=== PATIENT | male | born 1945 | race Caucasian/White ===

== ENCOUNTER 2016-12-02 14:29 | Emergency (ER) | payer BC, MEDICARE ==
[2016-12-02 15:25] VITALS: BP 121/64
--- NOTE | 2016-12-02 16:24 | UC ---
Skin Complaint HPI - HPI Summary HPI Summary: Patient presents with left great toe erythema with 2 blisters over the toe. He denies known bug bites, but states he is outside often with spiders around. He noticed last evening hit toe was swollen which quickly radiated into the foot with swelling. He was able to take 2 doses of benadryl throughout the night and now the swelling has resolved. He remains with slight erythema over the great toe now with enlarging blisters. One blister appears to be yellow, the other red. Denies fevers, sweats or chills. Denies malaise or hx of MRSA. - History of Current Complaint Chief Complaint: UCRas Time Seen by Provider: 12/02/16 15:47 Stated Complaint: RASH Hx Obtained From: Patient Onset/Duration: Sudden Onset Skin Exposure Onset/Duration: Hours Ago Timing: Constant Onset Severity: Mild Current Severity: Mild Pain Intensity: 5 Pain Scale Used: 0-10 Numeric Character: Redness, Painful Aggravating Factor(s): Nothing Alleviating Factor(s): Nothing Associated Signs & Symptoms: Positive: Tenderness, Joint Swelling Related History: Insect Bite/Sting - Allergy/Home Medications Allergies/Adverse Reactions: Allergies Allergy/AdvReac Type Severity Reaction Status Date / Time No Known Allergies Allergy Verified 12/02/16 15:25 Home Medications: Home Medications Probiotics PO DAILY 12/02/16 [History] diPHENhydraMINE PO* [Benadryl PO 25 MG TAB*] 2 tab PO PRN 12/02/16 [History] Review of Systems Constitutional: Negative Skin: Other - blisters with underlying erythema throughout the toe Respiratory: Negative Cardiovascular: Negative Genitourinary: Negative Motor: Negative Neurovascular: Negative Musculoskeletal: Negative Neurological: Negative All Other Systems Reviewed And Are Negative: Yes PMH/Surg Hx/FS Hx/Imm Hx Previously Healthy: Yes - Surgical History Surgical History: None - Family History Known Family History: Positive: Unknown - Social History Occupation: Retired Lives: With Family Alcohol Use: Daily Alcohol Amount: 2 glasses wine Substance Use Type: None Smoking Status (MU): Never Smoked Tobacco Physical Exam Triage Information Reviewed: Yes Appearance: Well-Appearing, Well-Nourished Vital Signs: Initial Vital Signs Temp 97.9 F 12/02/16 15:20 Pulse 56 12/02/16 15:20 Resp 16 12/02/16 15:20 BP 121/64 12/02/16 15:20 Pulse Ox 100 12/02/16 15:20 Vital Signs Reviewed: Yes Eye Exam: Normal Eyes: Positive: Conjunctiva Clear Neck exam: Normal Neck: Positive: Supple, No Lymphadenopathy Respiratory Exam: Normal Respiratory: Positive: Chest non-tender, Lungs clear Cardiovascular Exam: Normal Cardiovascular: Positive: RRR Musculoskeletal Exam: Normal Musculoskeletal: Positive: Strength Intact Neurological Exam: Normal Skin: Positive: significant lesion(s) - 2 blisters on the dorsal side of right great toe with underlying erythema - likely insect bite with possible infection Course/Dx - Course Course Of Treatment: 2 blisters on the dorsal side of right great toe with underlying erythema - likely insect bite with possible infection. He is given keflex and encouarged OTC abx ointment with strict return precautions given. Denies other symptoms at this time. - Differential Diagnoses - Skin Complaint Differential Diagnoses: Cellulitis, Poison [place], Poison [place], Urticaria - Diagnoses Provider Diagnoses: Infected Insect Bite of Great Right Toe Discharge - Discharge Plan Condition: Stable Disposition: HOME Prescriptions: Cephalexin CAP* [Keflex CAP*] 500 mg PO QID #28 cap MDD 4 Patient Education Materials: Cellulitis (ED), Insect Bite or Sting (ED) Referrals: Ralph Daniel MD [Primary Care Provider] - Additional Instructions: Follow up as needed for worsening symptoms Antibiotic ointment OTC over the area with gauze wrap Keflex four times daily for 7 days If you develop worsening redness, streaking up the foot, drainage from the area , warmth or worsening pain - return to the immediately
== END 2016-12-02 16:20 | disposition home or self-care (01) ==
LOC: UCEAST 14:29
DX: S90.461A Insect bite (nonvenomous), right great toe, initial encounter (principal); B96.89 Other specified bacterial agents as the cause of diseases classified elsewhere; W57.XXXA Bitten or stung by nonvenomous insect and other nonvenomous arthropods, initial encounter; Y92.9 Unspecified place or not applicable
CPT/HCPCS: 99212; G0463